=== PATIENT | male | born 1960 | race Caucasian/White ===

== ENCOUNTER 2018-07-04 05:53 | Day surgery (SDC) | payer OTHER ==
[2018-07-04] MEDS: SOD CHLORIDE 0.9% 1,000 ML IV (06:00)
[2018-07-04] MEDS ORDERED: DEXAMETHASONE 4 MG/ML 1 ML INJ (07:00)
[2018-07-04] MEDS ORDERED: LIDOCAINE 2% (SDV) 5 ML INJ (07:00)
[2018-07-04] MEDS ORDERED: ONDANSETRON 4 MG INJ (07:00)
[2018-07-04] MEDS ORDERED: CEFAZOLIN 1 GM INJ (07:00)
[2018-07-04] MEDS ORDERED: ROCURONIUM 50 MG INJ ×2 (07:00→08:00)
[2018-07-04] MEDS: BUPIVACAINE 0.25% (MPF) 30 ML INJ (07:53)
[2018-07-04] MEDS ORDERED: PROPOFOL 20 ML (08:00)
[2018-07-04] MEDS: CEFAZOLIN 2 GM/50 ML (PMX) 50 ML IVPB (08:30)
[2018-07-04] MEDS ORDERED: SUGAMMADEX SODIUM 200 MG/2 ML VIAL IV (09:01)
[2018-07-04] MEDS ORDERED: MIDAZOLAM 1 MG/ML 2 ML INJ IV (09:30)
[2018-07-04] MEDS ORDERED: EPHEDrine SULFATE 50 MG/5 ML SYG IV (09:30)
[2018-07-04] MEDS ORDERED: DIPHENHYDRAMINE 50 MG INJ IV (09:30)
[2018-07-04] MEDS ORDERED: METOCLOPRAMIDE 10 MG INJ IV (09:30)
[2018-07-04] MEDS ORDERED: MEPERIDINE 25 MG INJ IV (09:30)
[2018-07-04] MEDS ORDERED: HYDROmorphONE 1 MG/5 ML IV SYRINGE IV ×2 (09:30)
[2018-07-04] MEDS ORDERED: LABETALOL HCL 20MG INJ IV (09:30)
[2018-07-04] MEDS ORDERED: hydrALAzine 20 MG INJ IV (09:30)
[2018-07-04] MEDS ORDERED: FENTAnyl 50 MCG/ML VIAL IV ×2 (09:30)
[2018-07-04] MEDS ORDERED: ALBUTEROL 0.083% (NEB) 2.5 MG/3 ML AMP HHN (09:30)
[2018-07-04] MEDS ORDERED: KETOROLAC 30 MG INJ IV (09:30)
[2018-07-04] MEDS ORDERED: OXYCODONE/ACETAMINOPHEN (5/325) TAB PO ×2 (09:30)
[2018-07-04] MEDS: ONDANSETRON 4 MG INJ IV (09:31)
[2018-07-04] MEDS: FENTAnyl 50 MCG/ML VIAL IV (09:32)
[2018-07-04] MEDS: HYDROmorphONE 1 MG/5 ML IV SYRINGE IV (10:29)
[2018-07-04] MEDS: HYDROCODONE/APAP (5/325) TAB PO (10:55)
== END 2018-07-04 11:30 | disposition home or self-care (01) ==
LOC: SDS 05:53
DX: K80.10 Calculus of gallbladder with chronic cholecystitis without obstruction (principal)
CPT/HCPCS: 47562; 88304

== ENCOUNTER 2018-08-01 07:02 | Day surgery (SDC) | payer OTHER ==
[2018-08-01] MEDS ORDERED: LIDOCAINE 2% (SDV) 5 ML INJ (08:19)
[2018-08-01] MEDS ORDERED: PROPOFOL 60 ML (08:19)
== END 2018-08-01 11:42 | disposition home or self-care (01) ==
LOC: GIL 07:02
DX: R12 Heartburn (principal); K31.9 Disease of stomach and duodenum, unspecified; D12.0 Benign neoplasm of cecum; D12.5 Benign neoplasm of sigmoid colon; K29.80 Duodenitis without bleeding; K64.4 Residual hemorrhoidal skin tags; K29.70 Gastritis, unspecified, without bleeding; E11.9 Type 2 diabetes mellitus without complications; I10 Essential (primary) hypertension
CPT/HCPCS: 43239; 82962; 88305; 88312